=== PATIENT | female | born 1940 | race Caucasian/White ===

== ENCOUNTER 2019-06-17 18:17 | Emergency (ER) | payer MEDICARE, BC ==
[~2019-06-17] VITALS: Ht 154.9 cm; Wt 44.8 kg
[2019-06-17 18:25] VITALS: BP 149/84
[2019-06-17] MEDS ORDERED: HYDROcodone/acetaminophen 10/325mg tab PO ONE (19:35)
[2019-06-17] MEDS ORDERED: PER10325T PO (20:03)
[2019-06-17] MEDS ORDERED: ketorolac trometh inj. 60 MG/2 ML VIAL IM ONE (20:05)
[2019-06-18] MEDS ORDERED: PER10325T PO (18:50)
== END 2019-06-17 20:47 | disposition home or self-care (01) ==
LOC: ER 18:18
DX: G89.29 Other chronic pain (principal); M54.9 Dorsalgia, unspecified; Z76.0 Encounter for issue of repeat prescription; Z88.1 Allergy status to other antibiotic agents; Z88.8 Allergy status to other drugs, medicaments and biological substances; Z79.899 Other long term (current) drug therapy
CPT/HCPCS: 96372; 99284; J1885

== ENCOUNTER 2019-06-18 17:44 | Emergency (ER) | payer MEDICARE, BC ==
[~2019-06-18] VITALS: Ht 154.9 cm; Wt 45.2 kg
[~2019-06-18 17:44] MED LIST: PER10325T PO
[2019-06-18 17:54] VITALS: BP 134/84
[2019-06-18] MEDS ORDERED: PER10325T PO (18:50)
== END 2019-06-18 19:04 | disposition home or self-care (01) ==
LOC: ER 17:45
DX: G89.29 Other chronic pain (principal); Z76.0 Encounter for issue of repeat prescription; Z88.1 Allergy status to other antibiotic agents; Z88.8 Allergy status to other drugs, medicaments and biological substances; Z79.899 Other long term (current) drug therapy
CPT/HCPCS: 99283